=== PATIENT | female | born 1980 | race Caucasian/White ===

== ENCOUNTER 2021-06-16 11:38 | Inpatient (IN) | payer MEDICAID ==
[~2021-06-16] VITALS: Ht 157.5 cm; Wt 63.5 kg
[2021-06-16 12:45] LABS: BASOPHILS % 0.7 % (0.0-2.0); EOSINOPHILS % 0.7 % (0.0-5.0); HEMATOCRIT. 37.9 % (36.0-48.0); HEMOGLOBIN. 12.9 g/dL (12.0-16.0); MEAN CORPUSCULAR HEMOGLOBIN 27.8 pg (28.0-32.0); MEAN CORPUSCULAR VOLUME 81.5 fL (81.0-99.0); MEAN PLATELET VOLUME 8.9 fl (7.4-10.4); MONOCYTES % 7.7 % (2.0-8.0); NEUTROPHILS % 61.9 % (40.0-76.0); PLATELET 259 x1000/uL (130-400); RED BLOOD CELL COUNT 4.65 mill/uL (4.2-5.4); RED CELL DISTRIBUTION WIDTH 14.3 % (11.6-14.6)
[2021-06-16 12:47] LABS: CHLORIDE 107 mEq/L (98-107)
[2021-06-16 17:00] LABS: CLARITY URINE TURBID (CLEAR); COLOR URINE YELLOW (YELLOW); KETONES URINE NEGATIVE (NEGATIVE); LEUKOCYTE ESTERASE URINE NEGATIVE (NEGATIVE); NITRITE URINE NEGATIVE (NEGATIVE); OCCULT BLOOD URINE NEGATIVE (NEGATIVE); PH URINE 8.5 (4.5-8.0); PROTEIN URINE NEGATIVE (NEGATIVE); SPECIFIC GRAVITY URINE 1.016 (1.005-1.030); UROBILINOGEN URINE 0.2 E.U./dL (0.2-1.0)
[2021-06-16] MEDS ORDERED: ACETAMINOPHEN 325MG TABLET PO ONE (17:30)
[2021-06-16 17:35] LABS: HCG SCREEN NEGATIVE
[2021-06-16] MEDS ORDERED: LACTATED RINGERS 1,000 ML IV NR (17:55)
[2021-06-16] MEDS ORDERED: KETOROLAC 15MG/ML VIAL IV NR (17:55)
[2021-06-16] MEDS ORDERED: CLONIDINE 0.1MG TABLET PO PRN (20:30)
[2021-06-16] MEDS ORDERED: ONDANSETRON HCL 4MG/2ML INJ IV PRN (20:30)
[2021-06-16] MEDS ORDERED: DOCUSATE SODIUM 100MG CAPSULE PO PRN (20:30)
[2021-06-16] MEDS: ENOXAPARIN 40MG/0.4ML SYR SUBCUT SCH (21:13)
[2021-06-16] MEDS ORDERED: IOHEXOL-300 100 ML BOTTLE ONE (21:36)
[2021-06-16] MEDS: LACTATED RINGERS 1,000 ML IV SCH (22:21)
[2021-06-17 05:47] LABS: BASOPHILS % 0.6 % (0.0-2.0); EOSINOPHILS % 1.7 % (0.0-5.0); HEMOGLOBIN. 11.7 g/dL (12.0-16.0); LYMPHOCYTES % 39.5 % (20.0-50.0); MEAN CORPUSCULAR HEMOGLOBIN 27.3 pg (28.0-32.0); MEAN CORPUSCULAR VOLUME 81.6 fL (81.0-99.0); MEAN PLATELET VOLUME 9.6 fl (7.4-10.4); NEUTROPHILS % 49.2 % (40.0-76.0); PLATELET 222 x1000/uL (130-400); RED CELL DISTRIBUTION WIDTH 14.3 % (11.6-14.6)
[2021-06-17] MEDS: LACTATED RINGERS 1,000 ML IV SCH ×2 (05:50→13:00)
[2021-06-17 05:56] LABS: CHLORIDE 106 mEq/L (98-107)
[2021-06-17 06:11] LABS: AMYLASE 142 IU/L (25-115)
[2021-06-17] MEDS: ACETAMINOPHEN 325MG TABLET PO PRN ×2 (10:46→16:51)
[2021-06-17 21:15] VITALS: BP 119/71
[2021-06-17] MEDS ORDERED: NALOXONE HCL 0.4MG/ML VIAL IV PRN (23:00)
[2021-06-17] MEDS: ENOXAPARIN 40MG/0.4ML SYR SUBCUT SCH (23:06)
[2021-06-17] MEDS: HYDROCODONE/ACETAMINOPHEN 5/325MG TABLET PO PRN (23:07)
[2021-06-18] VITALS: BP 120/69
[2021-06-18] MEDS: LACTATED RINGERS 1,000 ML IV SCH ×3 (00:42→14:15)
[2021-06-18 04:00] VITALS: BP 119/69
[2021-06-18 06:30] LABS: BASOPHILS % 0.6 % (0.0-2.0); EOSINOPHILS % 1.3 % (0.0-5.0); HEMATOCRIT. 35.7 % (36.0-48.0); LYMPHOCYTES % 46.2 % (20.0-50.0); MEAN CORPUSCULAR HEMOGLOBIN 27.7 pg (28.0-32.0); MEAN CORPUSCULAR VOLUME 82.6 fL (81.0-99.0); MEAN PLATELET VOLUME 8.9 fl (7.4-10.4); MONOCYTES % 8.8 % (2.0-8.0); NEUTROPHILS % 43.1 % (40.0-76.0); PLATELET 236 x1000/uL (130-400); RED BLOOD CELL COUNT 4.33 mill/uL (4.2-5.4); RED CELL DISTRIBUTION WIDTH 14.1 % (11.6-14.6)
[2021-06-18 07:14] LABS: CHLORIDE 107 mEq/L (98-107)
[2021-06-18 07:17] LABS: AMYLASE 84 IU/L (25-115)
[2021-06-18 08:00] VITALS: BP 108/58
[2021-06-18 12:00] VITALS: BP 127/72
[2021-06-18 16:00] VITALS: BP 116/78
[2021-06-18] MEDS: HYDROCODONE/ACETAMINOPHEN 5/325MG TABLET PO PRN (18:15)
[2021-06-18 20:00] VITALS: BP 105/61
[2021-06-18] MEDS: ENOXAPARIN 40MG/0.4ML SYR SUBCUT SCH (20:49)
[2021-06-19] VITALS: BP 127/74
[2021-06-19] MEDS: HYDROCODONE/ACETAMINOPHEN 5/325MG TABLET PO PRN ×3 (01:22→18:45)
[2021-06-19 07:52] LABS: BASOPHILS % 0.5 % (0.0-2.0); EOSINOPHILS % 0.7 % (0.0-5.0); HEMATOCRIT. 38.6 % (36.0-48.0); HEMOGLOBIN. 12.9 g/dL (12.0-16.0); MEAN CORPUSCULAR HEMOGLOBIN 27.5 pg (28.0-32.0); MEAN CORPUSCULAR VOLUME 82.6 fL (81.0-99.0); MEAN PLATELET VOLUME 9.1 fl (7.4-10.4); MONOCYTES % 8.6 % (2.0-8.0); NEUTROPHILS % 58.2 % (40.0-76.0); PLATELET 267 x1000/uL (130-400); RED BLOOD CELL COUNT 4.68 mill/uL (4.2-5.4)
[2021-06-19 08:00] VITALS: BP 105/90
[2021-06-19 08:03] LABS: CHLORIDE 106 mEq/L (98-107)
[2021-06-19 08:06] LABS: AMYLASE 102 IU/L (25-115)
[2021-06-19 12:00] VITALS: BP 115/66
[2021-06-19] MEDS ORDERED: TRAM50TA3 MT (14:45)
[2021-06-19 15:00] VITALS: BP 115/66
[2021-06-19 18:45] VITALS: BP 116/68
== END 2021-06-19 21:19 | disposition home or self-care (01) | DRG 282 ==
LOC: ER 12:05 → EDBEDREQ 20:40 → EDBEDREQTM 20:40 → MICUSO 22:38 → 6EST 06-17 22:33
PROVIDERS: ADMIT Family Medicine Adult Medicine; ATTEND Family Medicine Adult Medicine
DX: K85.90 Acute pancreatitis without necrosis or infection, unspecified (principal); I10 Essential (primary) hypertension; K57.90 Diverticulosis of intestine, part unspecified, without perforation or abscess without bleeding; K86.3 Pseudocyst of pancreas; K86.89 Other specified diseases of pancreas; Z20.822 Contact with and (suspected) exposure to COVID-19; Z82.49 Family history of ischemic heart disease and other diseases of the circulatory system
CPT/HCPCS: 36415; 74177; 74181; 76700; 80048; 80053; 81003; 82105; 82150; 82378; 83615; 84703; 85025; 86301; 87426; 99285; J1650; J1885; Q9967

== ENCOUNTER 2022-06-05 17:09 | Emergency (ER) | payer MEDICAID ==
[~2022-06-05] VITALS: Ht 167.6 cm; Wt 75.0 kg
[2022-06-05] MEDS ORDERED: IBUPROFEN 600MG TABLET PO ONE (22:30)
[2022-06-05 22:46] VITALS: BP 138/60
[2022-06-05 23:34] LABS: BASOPHILS % 0.7 % (0.0-2.0); EOSINOPHILS % 1.2 % (0.0-5.0); HEMATOCRIT. 34.3 % (36.0-48.0); HEMOGLOBIN. 11.3 g/dL (12.0-16.0); LYMPHOCYTES % 47.7 % (20.0-50.0); MEAN CORPUSCULAR HEMOGLOBIN 25.1 pg (28.0-32.0); MEAN CORPUSCULAR VOLUME 76.3 fL (81.0-99.0); MEAN PLATELET VOLUME 8.7 fl (7.4-10.4); MONOCYTES % 8.6 % (2.0-8.0); NEUTROPHILS % 41.8 % (40.0-76.0); PLATELET 456 x1000/uL (130-400); RED CELL DISTRIBUTION WIDTH 21.4 % (11.6-14.6)
[2022-06-05 23:39] LABS: CHLORIDE 107 mEq/L (98-107)
[2022-06-06 00:11] LABS: HCG SCREEN NEGATIVE
[2022-06-06] MEDS ORDERED: IOHEXOL-350 100 ML BOTTLE ONE (01:25)
[2022-06-06] MEDS ORDERED: IBUP-2029 MT (01:50)
== END 2022-06-06 02:21 | disposition home or self-care (01) ==
LOC: ER 17:54
DX: M54.2 Cervicalgia (principal); F12.10 Cannabis abuse, uncomplicated
CPT/HCPCS: 36415; 70498; 80053; 84703; 85025; 99285; Q9967